=== PATIENT | female | born 1940 | race Caucasian/White ===

== ENCOUNTER 2024-09-19 14:02 | Inpatient (IN) | payer MEDICARE, BC ==
[~2024-09-19] VITALS: Ht 165.1 cm; Wt 45.8 kg
[2024-09-19] MEDS ORDERED: ZIPRASIDONE MESYLATE 20 MG VIAL IM ONE ×2 (14:15→14:20)
[2024-09-19] MEDS: ZIPRASIDONE MESYLATE 20 MG VIAL IM ONE (14:34)
[2024-09-19] MEDS ORDERED: QUET25TA PO (14:37)
[2024-09-19] MEDS ORDERED: DOCU100T28 PO (14:37)
[2024-09-19] MEDS ORDERED: ASPI81TA31 PO (14:37)
[2024-09-19] MEDS ORDERED: MAGN400O6 PO (14:37)
[2024-09-19] MEDS ORDERED: TAMS-3 PO (14:37)
[2024-09-19] MEDS ORDERED: DIVA500T2 PO (14:37)
[2024-09-19] MEDS ORDERED: MELA5TAB PO (14:37)
[2024-09-19] MEDS ORDERED: VITA-287 PO (14:37)
[2024-09-19] MEDS ORDERED: ACET-3117 PO (14:37)
[2024-09-19 15:02] LABS: BASOPHILS % (AUTO) 0.5 % (0.0-2.0); EOSINOPHILS % (AUTO) 0.5 % (0.0-7.0); HEMATOCRIT 37.7 % (31.2-41.9); HEMOGLOBIN 13.7 g/dL (10.9-14.3); LYMPHOCYTES # (AUTO) 2.2 K/uL (0.8-4.8); LYMPHOCYTES % (AUTO) 36.8 % (20.5-51.5); MEAN CORPUSCULAR HEMOGLOBIN 37.6 uug (24.7-32.8); MEAN CORPUSCULAR HGB CONC 36 g/dL (32.3-35.6); MEAN CORPUSCULAR VOLUME 103.8 fL (75.5-95.3); MONOCYTES # (AUTO) 0.4 K/uL (0.1-1.30); MONOCYTES % (AUTO) 6.9 % (0.0-11.0); NEUTROPHILS # (AUTO) 3.3 K/uL (1.8-8.9); NEUTROPHILS % (AUTO) 55.3 % (38.5-71.5); PLATELET COUNT (AUTO) 155 K/uL (179-408); RED BLOOD CELL COUNT(AUTO) 3.64 MIL/uL (3.63-4.92); RED CELL DISTRIBUTION WIDTH 12.6 % (12.3-17.7); WHITE BLOOD COUNT (AUTO) 5.9 K/uL (3.8-11.8)
[2024-09-19 15:08] LABS: DIFFERENTIAL COMMENT 1
[2024-09-19 15:11] LABS: CALCIUM 9.8 mg/dL (8.5-10.1); CARBON DIOXIDE 25 mmol/L (21-32); CHLORIDE 105 mmol/L (98-107); CREATININE 0.8 mg/dL (0.6-1.3); GLUCOSE 108 mg/dL (74-106); POTASSIUM 4.3 mmol/L (3.5-5.1); SODIUM SERUM 141 mmol/L (136-145); UREA NITROGEN, BLOOD 25 mg/dL (7-18)
[2024-09-19 15:15] LABS: AMMONIA < 10 umol/L (11-32); ETHANOL < 3 MG/DL (0-10)
[2024-09-19 15:17] LABS: ACETAMINOPHEN < 2.0 ug/mL (10-30); ALANINE AMINOTRANSFERASE 21 U/L (14-59); ALBUMIN 3.8 g/dL (3.4-5.0); ALKALINE PHOSPHATASE 59 U/L (50-136); ASPARTATE AMINOTRANSFERASE 23 U/L (15-37); BILIRUBIN,DIRECT 0.1 mg/dL (0.0-0.2); BILIRUBIN,TOTAL 0.4 mg/dL (0.2-1.0); TOTAL PROTEIN, SERUM 7.3 g/dL (6.4-8.2)
[2024-09-19 15:25] LABS: THYROID STIMULATING HORMONE 2.645 mIU/mL (0.358-3.740)
[2024-09-19] MEDS ORDERED: MAG HYDROX/AL HYDROX/SIMETH 30 ML LIQUID UDC PO PRN (17:45)
[2024-09-19] MEDS ORDERED: ACETAMINOPHEN 325 MG TABLET PO PRN (17:45)
[2024-09-19] MEDS ORDERED: ZOLPIDEM 5 MG TABLET PO PRN ×2 (17:45)
[2024-09-19] MEDS ORDERED: MAGNESIUM HYDROXIDE 30 ML LIQUID UDC PO PRN (17:45)
[2024-09-19] MEDS ORDERED: OLAN5TAB70 PO (18:06)
[2024-09-19 18:45] VITALS: BP 154/67; TEMP 98.4; O2SAT 100
[2024-09-19 20:00] VITALS: BP 140/72; TEMP 98.1; O2SAT 97
[2024-09-19] MEDS: LORAZEPAM 1 MG TABLET PO PRN (22:06)
[2024-09-20 08:45] LABS: ALANINE AMINOTRANSFERASE 23 U/L (14-59); ALKALINE PHOSPHATASE 69 U/L (50-136); ASPARTATE AMINOTRANSFERASE 18 U/L (15-37); BILIRUBIN,DIRECT 0.1 mg/dL (0.0-0.2); BILIRUBIN,TOTAL 0.4 mg/dL (0.2-1.0); CALCIUM 9.2 mg/dL (8.5-10.1); CARBON DIOXIDE 28 mmol/L (21-32); CHLORIDE 103 mmol/L (98-107); CREATININE 0.7 mg/dL (0.6-1.3); GLUCOSE 105 mg/dL (74-106); POTASSIUM 4.1 mmol/L (3.5-5.1); SODIUM SERUM 141 mmol/L (136-145); UREA NITROGEN, BLOOD 21 mg/dL (7-18)
[2024-09-20] MEDS: VITAMIN B COMPLEX 1 TABLET PO SCH (08:59)
[2024-09-20] MEDS: ASPIRIN 81 MG TAB.CHEW PO SCH (08:59)
[2024-09-20] MEDS: DOCUSATE SODIUM 100 MG CAPSULE PO SCH (08:59)
[2024-09-20] MEDS ORDERED: TAMSULOSIN HCL 0.4 MG CAP.SR.24H PO SCH (09:00)
[2024-09-20 09:18] VITALS: BP 162/87; TEMP 98; O2SAT 98
[2024-09-20] MEDS: ENSURE ENLIVE (VAN) 240 ML LIQUID PO SCH (11:15)
[2024-09-20 15:11] VITALS: BP 117/68; TEMP 98; O2SAT 98
[2024-09-20] MEDS: OLANZAPINE 2.5 MG TABLET PO SCH (18:20)
[2024-09-20] MEDS: LORAZEPAM 1 MG TABLET PO PRN (18:20)
[2024-09-20 20:00] VITALS: BP 141/79; TEMP 97.9; O2SAT 98
[2024-09-20] MEDS: TAMSULOSIN HCL 0.4 MG CAP.SR.24H PO SCH (21:13)
[2024-09-20] MEDS: DIVALPROEX SPRINKLE 125 MG CAP.SPRINK PO SCH (21:13)
[2024-09-20] MEDS: MIRTAZAPINE 15 MG TABLET PO SCH (21:13)
[2024-09-21 07:39] VITALS: BP 132/60; TEMP 97.5
[2024-09-21 16:10] VITALS: BP 116/68; TEMP 97.4; O2SAT 98
[2024-09-21 20:00] VITALS: BP 120/65; TEMP 97.3; O2SAT 98
[2024-09-22 20:00] VITALS: BP 139/88; TEMP 97.4; O2SAT 98
[2024-09-23 08:12] VITALS: BP 122/67; TEMP 98; O2SAT 98
[2024-09-23 17:04] VITALS: BP 121/76; TEMP 98.3; O2SAT 98
[2024-09-23 20:00] VITALS: BP 131/54; TEMP 97.4; O2SAT 96
[2024-09-24 08:10] VITALS: BP 145/73; TEMP 98; O2SAT 98
[2024-09-24 08:11] VITALS: BP 145/75; TEMP 97.8; O2SAT 98
[2024-09-24] MEDS: OLANZAPINE 2.5 MG TABLET PO SCH (08:14)
[2024-09-24 16:59] VITALS: BP 137/68; TEMP 98.3; O2SAT 98
[2024-09-24] MEDS: ATORVASTATIN 10 MG TABLET PO SCH (21:00)
[2024-09-25] MEDS: OLANZAPINE 5 MG TABLET PO SCH (08:08)
[2024-09-25 08:14] VITALS: BP 135/68; TEMP 98.6; O2SAT 93
[2024-09-25] MEDS: OLANZAPINE 10 MG VIAL IM ONE (08:22)
[2024-09-25] MEDS ORDERED: OLANZAPINE 2.5 MG TABLET PO SCH (09:00)
[2024-09-25 16:42] VITALS: BP 103/70; TEMP 98.6; O2SAT 97
[2024-09-25 22:05] VITALS: BP 98/68; TEMP 97.9; O2SAT 97
[2024-09-26 07:30] VITALS: BP 122/69; TEMP 97.9; O2SAT 94
[2024-09-26 16:30] VITALS: BP 116/62; TEMP 98.2; O2SAT 97
[2024-09-26 20:02] VITALS: BP 124/66; TEMP 97.9; O2SAT 95
[2024-09-27 07:49] VITALS: BP 120/60; TEMP 98; O2SAT 94
[2024-09-27 15:16] VITALS: BP 113/77; TEMP 98.2; O2SAT 98
[2024-09-27] MEDS: OLANZAPINE 10 MG VIAL IM PRN (16:56)
[2024-09-27 20:00] VITALS: BP 131/73; TEMP 97.5; O2SAT 96
[2024-09-28 07:58] VITALS: BP 159/73; TEMP 98.2; O2SAT 98
[2024-09-28 20:00] VITALS: BP_SYST 140; BP_SYST 81; BP_DIAS 47; BP_DIAS 89; TEMP 98; O2SAT 93; O2SAT 97
[2024-09-29 08:13] VITALS: BP 140/70; TEMP 98; O2SAT 98
[2024-09-29 15:23] VITALS: BP 120/68; TEMP 98.2; O2SAT 98
[2024-09-29 20:03] VITALS: BP 136/64; TEMP 98.1; O2SAT 96
[2024-09-30] MEDS ORDERED: HYDROCODONE/APAP 5-325MG TABLET PO PRN ×2 (13:45→14:00)
[2024-09-30] MEDS ORDERED: ACET325T53 PO (18:47)
[2024-09-30] MEDS ORDERED: ATOR10TA PO (18:48)
[2024-09-30] MEDS ORDERED: DOCU100C36 PO (18:49)
[2024-09-30] MEDS ORDERED: HYDR-4209 PO (18:50)
[2024-09-30] MEDS ORDERED: LACT-246 PO (18:51)
[2024-09-30] MEDS ORDERED: LORA-259 PO (18:52)
[2024-09-30] MEDS ORDERED: OLAN5TAB70 PO (18:54)
[2024-09-30] MEDS ORDERED: ZOLP5TAB2 PO (18:56)
[2024-09-30] MEDS ORDERED: MAG355OR18 PO (18:59)
[2024-09-30] MEDS ORDERED: OLAN10VI IM (19:00)
== END 2024-09-30 16:15 | disposition short-term general hospital (02) | DRG 885 ==
LOC: ER 14:02 → GPS 16:38
PROVIDERS: ADMIT Psychiatry & Neurology Psychiatry
DX: F39 Unspecified mood [affective] disorder (principal); S72.002A Fracture of unspecified part of neck of left femur, initial encounter for closed fracture; T71.122 Asphyxiation due to plastic bag, intentional self-harm; F01.54 Vascular dementia, unspecified severity, with anxiety; G93.40 Encephalopathy, unspecified; Z68.1 Body mass index [BMI] 19.9 or less, adult; R64 Cachexia; F01.53 Vascular dementia, unspecified severity, with mood disturbance; E46 Unspecified protein-calorie malnutrition; E44.0 Moderate protein-calorie malnutrition; F29 Unspecified psychosis not due to a substance or known physiological condition; Z79.82 Long term (current) use of aspirin; Z79.899 Other long term (current) drug therapy; F31.9 Bipolar disorder, unspecified; F20.9 Schizophrenia, unspecified; K21.9 Gastro-esophageal reflux disease without esophagitis; E78.5 Hyperlipidemia, unspecified; R62.7 Adult failure to thrive; D75.89 Other specified diseases of blood and blood-forming organs; I10 Essential (primary) hypertension; N32.81 Overactive bladder; W19.XXXA Unspecified fall, initial encounter; Y92.231 Patient bathroom in hospital as the place of occurrence of the external cause
CPT/HCPCS: 36415; 70450; 71045; 73501; 84443; 84484; 85025; 85730; A4606; A4663; G0480; J2358; J3486

== ENCOUNTER 2024-09-30 16:22 | Inpatient (IN) | payer MEDICARE, BC ==
[~2024-09-30] VITALS: Ht 165.1 cm; Wt 45.8 kg
[~2024-09-30 16:22] MED LIST: ACET-3117 PO; ASPI81TA31 PO; DOCU100T28 PO; MAGN400O6 PO; MELA5TAB PO; TAMS-3 PO; VITA-287 PO
[2024-09-30] MEDS ORDERED: ACET325T53 PO (18:47)
[2024-09-30] MEDS ORDERED: ATOR10TA PO (18:48)
[2024-09-30] MEDS ORDERED: DOCU100C36 PO (18:49)
[2024-09-30] MEDS ORDERED: HYDR-4209 PO (18:50)
[2024-09-30] MEDS ORDERED: LACT-246 PO (18:51)
[2024-09-30] MEDS ORDERED: LORA-259 PO (18:52)
[2024-09-30] MEDS ORDERED: OLAN5TAB70 PO (18:54)
[2024-09-30] MEDS ORDERED: ZOLP5TAB2 PO (18:56)
[2024-09-30] MEDS ORDERED: MAG355OR18 PO (18:59)
[2024-09-30] MEDS ORDERED: OLAN10VI IM (19:00)
[2024-09-30] MEDS ORDERED: MAGNESIUM HYDROXIDE 30 ML LIQUID UDC PO PRN (19:15)
[2024-09-30] MEDS ORDERED: LORAZEPAM 1 MG TABLET PO PRN (19:15)
[2024-09-30] MEDS ORDERED: ONDANSETRON 4 MG/2 ML VIAL IV PRN (19:15)
[2024-09-30] MEDS ORDERED: REMEDY ESSENTIAL ZINC PASTE 113 GM TP PRN (19:15)
[2024-09-30] MEDS: ATORVASTATIN 10 MG TABLET PO SCH (21:45)
[2024-09-30] MEDS: TAMSULOSIN HCL 0.4 MG CAP.SR.24H PO SCH (21:45)
[2024-09-30] MEDS: IV NS 1000 ML 1,000 ML IV ONE (22:15)
[2024-09-30] MEDS: MORPHINE SULFATE 2 MG/1 ML DISP.SYRIN IV PRN (23:27)
[2024-10-01] MEDS: PANTOPRAZOLE SODIUM 40 MG TABLET.DR PO SCH (07:00)
[2024-10-01 07:12] LABS: *BILIRUBIN,URIN NEGATIVE (NEGATIVE); *BLOOD, URINE NEGATIVE (NEGATIVE); *CLARITY,URINE CLEAR (CLEAR); *COLOR,URINE YELLOW (YELLOW); *KETONES,URINE NEGATIVE (NEGATIVE); *PROTEIN,URINE NEGATIVE (NEGATIVE); *UROBILINOGEN,URINE 0.2 E.U./dl (NORMAL); LEUKOCYTE ESTERASE ,URINE TRACE (NEGATIVE); NITRITE, URINE NEGATIVE (NEGATIVE); PH,URINE 6.5 (5.0-8.0); UGLUCOSE NEGATIVE (NEGATIVE)
[2024-10-01 07:24] LABS: CALCIUM 8.3 mg/dL (8.5-10.1); CARBON DIOXIDE 25 mmol/L (21-32); CHLORIDE 105 mmol/L (98-107); CHOLESTEROL 125 mg/dL (<200); CREATININE 0.6 mg/dL (0.6-1.3); GLUCOSE 95 mg/dL (74-106); HDL CHOLESTEROL 38 mg/dL (40-60); MAGNESIUM 2.1 mg/dL (1.8-2.4); PHOSPHOROUS 3.5 mg/dL (2.5-4.9); POTASSIUM 3.7 mmol/L (3.5-5.1); SODIUM SERUM 138 mmol/L (136-145); TRIGLYCERIDES 90 MG/DL (30-150); UREA NITROGEN, BLOOD 21 mg/dL (7-18)
[2024-10-01 07:36] LABS: THYROID STIMULATING HORMONE 1.726 mIU/mL (0.358-3.740)
[2024-10-01 07:37] LABS: BACTERIA,URINE FEW /HPF (NONE SEEN); SQUAMOUS EPITHELIAL CELL,UR FEW /HPF (NONE SEEN); WBC,URINE 20-50 /HPF (0-3)
[2024-10-01 07:54] LABS: BASOPHILS % (AUTO) 0.4 % (0.0-2.0); DIFFERENTIAL COMMENT 0; EOSINOPHILS % (AUTO) 0.6 % (0.0-7.0); HEMATOCRIT 31.1 % (31.2-41.9); HEMOGLOBIN 12.2 g/dL (10.9-14.3); LYMPHOCYTES # (AUTO) 1.7 K/uL (0.8-4.8); LYMPHOCYTES % (AUTO) 21.9 % (20.5-51.5); MEAN CORPUSCULAR HGB CONC 39 g/dL (32.3-35.6); MEAN CORPUSCULAR VOLUME 109.7 fL (75.5-95.3); MONOCYTES % (AUTO) 12.9 % (0.0-11.0); NEUTROPHILS # (AUTO) 4.9 K/uL (1.8-8.9); NEUTROPHILS % (AUTO) 64.2 % (38.5-71.5); PLATELET COUNT (AUTO) 139 K/uL (179-408); RED CELL DISTRIBUTION WIDTH 12.5 % (12.3-17.7); WHITE BLOOD COUNT (AUTO) 7.7 K/uL (3.8-11.8)
[2024-10-01 07:58] LABS: RED BLOOD CELL COUNT(AUTO) 2.84 MIL/uL (3.63-4.92)
[2024-10-01 08:00] VITALS: BP 125/75; TEMP 97.8; O2SAT 95
[2024-10-01] MEDS: DOCUSATE SODIUM 100 MG CAPSULE PO SCH (08:48)
[2024-10-01] MEDS: ENSURE WITH FIBER 237 ML LIQUID (CHOCOLATE) PO SCH (08:48)
[2024-10-01] MEDS: VITAMIN B COMPLEX 1 TABLET PO SCH (08:48)
[2024-10-01] MEDS: OLANZAPINE 5 MG TABLET PO SCH (08:48)
[2024-10-01] MEDS: ENOXAPARIN SODIUM 40 MG/0.4 ML DISP.SYRIN SQ SCH (08:50)
[2024-10-01 16:00] VITALS: BP_SYST 134; BP_SYST 163; BP_DIAS 74; BP_DIAS 82; TEMP 98.1; O2SAT 96
[2024-10-01] MEDS: HYDROCODONE/APAP 5-325MG TABLET PO PRN (16:25)
[2024-10-01 19:19] VITALS: BP 112/68; TEMP 98.6; O2SAT 93
[2024-10-01] MEDS ORDERED: CEFTRIAXONE /D5W 50ML IVPB **ER PYXIS IV ONE (21:37)
[2024-10-01] MEDS: CEFTRIAXONE 1 G VIAL IM SCH (21:59)
[2024-10-02] MEDS: IV NS 1000 ML 1,000 ML IV PRN (05:01)
[2024-10-02 06:15] VITALS: BP 120/75; TEMP 98.3; O2SAT 95
[2024-10-02 08:00] VITALS: BP 136/72; TEMP 98.3; O2SAT 96
[2024-10-02] MEDS ORDERED: MIDAZOLAM HCL 2 MG/2 ML VIAL ONE (08:37)
[2024-10-02] MEDS ORDERED: VASOPRESSIN 20 UNIT/ML VIAL ONE (08:37)
[2024-10-02] MEDS ORDERED: FENTANYL CITRATE 100 MCG/2 ML AMPUL ONE (08:37)
[2024-10-02] MEDS ORDERED: VANCOMYCIN 1000 MG VIAL ONE (09:07)
[2024-10-02] MEDS ORDERED: OLANZAPINE 10 MG VIAL IM PRN (09:15)
[2024-10-02] MEDS ORDERED: ROPIVACAINE HCL/PF 0.5% ( 5 MG/ML ) , 20 ML VIAL ONE (09:32)
[2024-10-02] MEDS ORDERED: IV D5W-0.45% NS +20 KCL 1,000 ML IV ONE (10:33)
[2024-10-02 11:44] VITALS: BP 145/78; TEMP 97.7; O2SAT 99
[2024-10-02] MEDS: IV D5W-0.45% NS +20 KCL 1,000 ML IV PRN (12:07)
[2024-10-02 15:58] VITALS: BP 130/68; TEMP 97.6; O2SAT 100
[2024-10-02] MEDS: CEFTRIAXONE 1 G in IV DEXTROSE 5% 50 ML IV SCH (20:32)
[2024-10-02] MEDS ORDERED: CEFTRIAXONE 1 G VIAL IM SCH (21:00)
[2024-10-02] MEDS: MORPHINE SULFATE 2 MG/1 ML DISP.SYRIN IV PRN (21:05)
[2024-10-02 21:50] VITALS: BP 136/75; TEMP 97.5; O2SAT 93
[2024-10-03 04:36] VITALS: BP 146/67; TEMP 98.3; O2SAT 95
[2024-10-03 07:34] LABS: BASOPHILS % (AUTO) 0.2 % (0.0-2.0); EOSINOPHILS % (AUTO) 0.6 % (0.0-7.0); HEMATOCRIT 28.7 % (31.2-41.9); HEMOGLOBIN 11.5 g/dL (10.9-14.3); LYMPHOCYTES # (AUTO) 1.5 K/uL (0.8-4.8); LYMPHOCYTES % (AUTO) 20.8 % (20.5-51.5); MEAN CORPUSCULAR HEMOGLOBIN 43.8 uug (24.7-32.8); MEAN CORPUSCULAR HGB CONC 40 g/dL (32.3-35.6); MONOCYTES # (AUTO) 0.9 K/uL (0.1-1.30); MONOCYTES % (AUTO) 11.7 % (0.0-11.0); NEUTROPHILS # (AUTO) 4.9 K/uL (1.8-8.9); NEUTROPHILS % (AUTO) 66.7 % (38.5-71.5); PLATELET COUNT (AUTO) 133 K/uL (179-408); RED BLOOD CELL COUNT(AUTO) 2.63 MIL/uL (3.63-4.92); RED CELL DISTRIBUTION WIDTH 12.8 % (12.3-17.7); WHITE BLOOD COUNT (AUTO) 7.3 K/uL (3.8-11.8)
[2024-10-03 07:41] LABS: DIFFERENTIAL COMMENT 1
[2024-10-03 07:44] LABS: CALCIUM 8.6 mg/dL (8.5-10.1); CARBON DIOXIDE 28 mmol/L (21-32); CHLORIDE 104 mmol/L (98-107); CREATININE 0.6 mg/dL (0.6-1.3); GLUCOSE 118 mg/dL (74-106); POTASSIUM 4.1 mmol/L (3.5-5.1); SODIUM SERUM 138 mmol/L (136-145); UREA NITROGEN, BLOOD 9 mg/dL (7-18)
[2024-10-03] MEDS: ENOXAPARIN SODIUM 40 MG/0.4 ML DISP.SYRIN SQ SCH (08:26)
[2024-10-03] MEDS ORDERED: PROPOFOL 200 MG/20 ML BOTTLE ONE (09:00)
[2024-10-03 10:41] VITALS: BP 150/83; TEMP 98.2; O2SAT 94
[2024-10-03 15:30] VITALS: BP 104/69; TEMP 98.5; O2SAT 97
[2024-10-03 19:00] VITALS: BP 107/52; TEMP 99.4; O2SAT 94
[2024-10-03] MEDS: ACETAMINOPHEN 325 MG TABLET PO PRN (20:55)
[2024-10-03] MEDS: MEGESTROL ACETATE 400 MG/10 ML LIQUID UDC PO SCH (20:57)
[2024-10-04 04:00] VITALS: BP 113/60; TEMP 98; O2SAT 96
[2024-10-04 07:39] LABS: CALCIUM 7.9 mg/dL (8.5-10.1); CARBON DIOXIDE 27 mmol/L (21-32); CHLORIDE 103 mmol/L (98-107); CREATININE 0.6 mg/dL (0.6-1.3); GLUCOSE 109 mg/dL (74-106); POTASSIUM 3.9 mmol/L (3.5-5.1); SODIUM SERUM 136 mmol/L (136-145); UREA NITROGEN, BLOOD 15 mg/dL (7-18)
[2024-10-04 07:57] LABS: BASOPHILS % (AUTO) 0.2 % (0.0-2.0); EOSINOPHILS % (AUTO) 0.8 % (0.0-7.0); HEMOGLOBIN 10.6 g/dL (10.9-14.3); LYMPHOCYTES # (AUTO) 1.1 K/uL (0.8-4.8); LYMPHOCYTES % (AUTO) 19.6 % (20.5-51.5); MEAN CORPUSCULAR HEMOGLOBIN 59.2 uug (24.7-32.8); MEAN CORPUSCULAR HGB CONC 55 g/dL (32.3-35.6); MEAN CORPUSCULAR VOLUME 108.5 fL (75.5-95.3); MONOCYTES # (AUTO) 0.8 K/uL (0.1-1.30); MONOCYTES % (AUTO) 13.7 % (0.0-11.0); NEUTROPHILS # (AUTO) 3.8 K/uL (1.8-8.9); NEUTROPHILS % (AUTO) 65.7 % (38.5-71.5); PLATELET COUNT (AUTO) 131 K/uL (179-408); RED CELL DISTRIBUTION WIDTH 12.6 % (12.3-17.7); WHITE BLOOD COUNT (AUTO) 5.8 K/uL (3.8-11.8)
[2024-10-04 07:59] LABS: DIFFERENTIAL COMMENT 1; RED BLOOD CELL COUNT(AUTO) 1.79 MIL/uL (3.63-4.92)
[2024-10-04 08:00] LABS: HEMATOCRIT 19.4 % (31.2-41.9)
[2024-10-04] MEDS: HYDROCODONE/APAP 10-325 MG TABLET PO PRN (10:35)
[2024-10-04 11:02] VITALS: BP 122/61; TEMP 98.5; O2SAT 96
[2024-10-04 11:13] LABS: HEMATOCRIT 26.4 % (31.2-41.9); HEMOGLOBIN 10.2 g/dL (10.9-14.3)
[2024-10-04 12:11] LABS: BAND % (MANUAL) 4 % (0-10); LYMPHOCYTES % (MANUAL) 18 % (20-40); MONOCYTES % (MANUAL) 12 % (2-10); NEUTROPHILS % (MANUAL) 66 % (42-75); PLATELET ESTIMATE DECREASED
[2024-10-04 12:12] LABS: ANISOCYTOSIS 1+
[2024-10-04 16:11] VITALS: BP 119/60; TEMP 97.2; O2SAT 95
[2024-10-04 19:15] VITALS: BP 129/64; TEMP 100.1; O2SAT 95
[2024-10-05 05:26] VITALS: BP 118/63; TEMP 98; O2SAT 97
[2024-10-05 07:43] LABS: CALCIUM 8.6 mg/dL (8.5-10.1); CARBON DIOXIDE 26 mmol/L (21-32); CHLORIDE 105 mmol/L (98-107); CREATININE 0.6 mg/dL (0.6-1.3); GLUCOSE 99 mg/dL (74-106); POTASSIUM 3.2 mmol/L (3.5-5.1); SODIUM SERUM 133 mmol/L (136-145); UREA NITROGEN, BLOOD 14 mg/dL (7-18)
[2024-10-05 08:22] LABS: BASOPHILS % (AUTO) 0.4 % (0.0-2.0); DIFFERENTIAL COMMENT 0; EOSINOPHILS # (AUTO) 0.1 K/uL (0.0-0.7); EOSINOPHILS % (AUTO) 1.2 % (0.0-7.0); HEMATOCRIT 25.8 % (31.2-41.9); LYMPHOCYTES # (AUTO) 1.9 K/uL (0.8-4.8); LYMPHOCYTES % (AUTO) 22.6 % (20.5-51.5); MEAN CORPUSCULAR HEMOGLOBIN 40.6 uug (24.7-32.8); MEAN CORPUSCULAR HGB CONC 39 g/dL (32.3-35.6); MEAN CORPUSCULAR VOLUME 105.2 fL (75.5-95.3); MONOCYTES % (AUTO) 12.1 % (0.0-11.0); NEUTROPHILS # (AUTO) 5.5 K/uL (1.8-8.9); NEUTROPHILS % (AUTO) 63.7 % (38.5-71.5); PLATELET COUNT (AUTO) 150 K/uL (179-408); RED CELL DISTRIBUTION WIDTH 12.7 % (12.3-17.7); WHITE BLOOD COUNT (AUTO) 8.6 K/uL (3.8-11.8)
[2024-10-05 08:32] LABS: RED BLOOD CELL COUNT(AUTO) 2.46 MIL/uL (3.63-4.92)
[2024-10-05] MEDS: POTASSIUM CHLORIDE 20 MEQ TAB.PRT.SR PO ONE (09:46)
[2024-10-05 11:05] VITALS: BP 111/61; TEMP 99; O2SAT 99
[2024-10-05 11:57] LABS: *BILIRUBIN,URIN NEGATIVE (NEGATIVE); *CLARITY,URINE CLEAR (CLEAR); *COLOR,URINE YELLOW (YELLOW); *KETONES,URINE NEGATIVE (NEGATIVE); *PROTEIN,URINE 1+ (NEGATIVE); *UROBILINOGEN,URINE 0.2 E.U./dl (NORMAL); LEUKOCYTE ESTERASE ,URINE NEGATIVE (NEGATIVE); NITRITE, URINE NEGATIVE (NEGATIVE); UGLUCOSE NEGATIVE (NEGATIVE)
[2024-10-05 11:58] LABS: *BLOOD, URINE TRACE (NEGATIVE); WBC,URINE 0-3 /HPF (0-3)
[2024-10-05 11:59] LABS: BACTERIA,URINE FEW /HPF (NONE SEEN)
[2024-10-05] MEDS ORDERED: PANT40TA49 PO (14:31)
[2024-10-05] MEDS ORDERED: ATOR10TA PO (14:31)
[2024-10-05] MEDS ORDERED: ENOX40DI SQ (14:31)
[2024-10-05] MEDS ORDERED: MEGE400O4 PO (14:31)
[2024-10-05] MEDS ORDERED: MAGN400O6 PO (14:31)
[2024-10-05] MEDS ORDERED: TAMS-3 PO (14:31)
[2024-10-05] MEDS ORDERED: VITA-85A PO (14:31)
[2024-10-05] MEDS ORDERED: DOCU-141 PO (14:31)
[2024-10-05] MEDS ORDERED: Lactose-Free Food/Fiber PO (14:31)
[2024-10-05] MEDS ORDERED: HYDR-3980 PO (14:31)
[2024-10-05] MEDS: MIRALAX 17 GM POWD.PACK PO SCH (14:35)
[2024-10-05 16:06] VITALS: BP 104/61; TEMP 98; O2SAT 96
[2024-10-05] MEDS ORDERED: ACETAMINOPHEN 325 MG TABLET-SA PATIENTS-PAIN ONLY PO PRN (18:00)
[2024-10-05] MEDS ORDERED: ENOXAPARIN SODIUM 40 MG/0.4 ML DISP.SYRIN SQ SCH (18:00)
[2024-10-05] MEDS ORDERED: HYDROCODONE/APAP 10-325 MG TABLET PO PRN (18:00)
[2024-10-05] MEDS ORDERED: MAGNESIUM HYDROXIDE 30 ML LIQUID UDC PO PRN (18:00)
[2024-10-05] MEDS ORDERED: MEGESTROL ACETATE 400 MG/10 ML LIQUID UDC PO SCH (21:00)
[2024-10-05] MEDS ORDERED: TAMSULOSIN HCL 0.4 MG CAP.SR.24H PO SCH (21:00)
[2024-10-05] MEDS ORDERED: ATORVASTATIN 10 MG TABLET PO SCH (21:00)
[2024-10-06] MEDS ORDERED: PANTOPRAZOLE SODIUM 40 MG TABLET.DR PO SCH (07:00)
[2024-10-06] MEDS ORDERED: DOCUSATE SODIUM 100 MG CAPSULE PO SCH (09:00)
[2024-10-06] MEDS ORDERED: ASPIRIN 81 MG TAB.CHEW PO SCH (09:00)
[2024-10-06] MEDS ORDERED: VITAMIN B COMPLEX 1 TABLET PO SCH (09:00)
[2024-10-06] MEDS ORDERED: Medication Not On Formulary EA ([Lactose-Free Food/Fiber] 237 ML) PO SCH (09:00)
[2024-10-06] MEDS ORDERED: LACT-47 PO (13:41)
== END 2024-10-05 17:03 | DRG 521 ==
LOC: MEDSURG3 16:23
PROC: 05HC33Z Insertion of Infusion Device into Left Basilic Vein, Percutaneous Approach (ICD-10-PCS; 2024-10-01)
PROC: 0SRS0JA Replacement of Left Hip Joint, Femoral Surface with Synthetic Substitute, Uncemented, Open Approach (ICD-10-PCS; principal; 2024-10-02 09:00)
DX: S72.012A Unspecified intracapsular fracture of left femur, initial encounter for closed fracture (principal); G93.41 Metabolic encephalopathy; F01.54 Vascular dementia, unspecified severity, with anxiety; N39.0 Urinary tract infection, site not specified; F01.53 Vascular dementia, unspecified severity, with mood disturbance; W18.39XA Other fall on same level, initial encounter; Y92.238 Other place in hospital as the place of occurrence of the external cause; E78.5 Hyperlipidemia, unspecified; R79.89 Other specified abnormal findings of blood chemistry; Z79.82 Long term (current) use of aspirin; Z79.899 Other long term (current) drug therapy; K21.9 Gastro-esophageal reflux disease without esophagitis; Z91.51 Personal history of suicidal behavior
CPT/HCPCS: 36415; 71045; 73501; 83735; 84100; 84443; 85018; 85025; 87040; 87086; 93005; 93307; A4663; G0378; J0690; J0696; J1100; J1650; J2250; J2270; J2405; J2765; J2795; J3010; J3370; J3490; J7040; J8999

== ENCOUNTER 2024-10-03 13:37 | Inpatient (IN) | payer MEDICARE, BC ==
[~2024-10-03] VITALS: Ht 165.1 cm; Wt 57.2 kg
[~2024-10-03 13:37] MED LIST changes: -ACET-3117 PO; +ACET325T53 PO; +ATOR10TA PO; +DOCU100C36 PO; -DOCU100T28 PO; +HYDR-4209 PO; +LACT-246 PO; +LORA-259 PO; +MAG355OR18 PO; +OLAN10VI IM; +OLAN5TAB70 PO; +ZOLP5TAB2 PO
[2024-10-04 11:15] VITALS: BP 122/61; TEMP 98.5
[2024-10-04 11:35] VITALS: BP 122/61; TEMP 98.5
[2024-10-05] MEDS ORDERED: TAMS-3 PO (14:31)
[2024-10-05] MEDS ORDERED: VITA-85A PO (14:31)
[2024-10-05] MEDS ORDERED: DOCU-141 PO (14:31)
[2024-10-05] MEDS ORDERED: MEGE400O4 PO (14:31)
[2024-10-05] MEDS ORDERED: ATOR10TA PO (14:31)
[2024-10-05] MEDS ORDERED: MAGN400O6 PO (14:31)
[2024-10-05] MEDS ORDERED: Lactose-Free Food/Fiber PO (14:31)
[2024-10-05] MEDS ORDERED: HYDR-3980 PO (14:31)
[2024-10-05] MEDS ORDERED: ENOX40DI SQ (14:31)
[2024-10-05] MEDS ORDERED: PANT40TA49 PO (14:31)
[2024-10-05 18:45] VITALS: BP 117/55; TEMP 98.1; O2SAT 96
[2024-10-05] MEDS ORDERED: Medication Not On Formulary EA (Melatonin 1 TAB) PO PRN (19:45)
[2024-10-05] MEDS ORDERED: MAG HYDROX/AL HYDROX/SIMETH 30 ML LIQUID UDC PO PRN (19:45)
[2024-10-05] MEDS ORDERED: ACETAMINOPHEN 325 MG TABLET-SA PATIENTS-PAIN ONLY PO PRN (19:45)
[2024-10-05] MEDS ORDERED: LORAZEPAM 1 MG TABLET PO PRN (19:45)
[2024-10-05] MEDS: ATORVASTATIN 10 MG TABLET PO SCH (20:30)
[2024-10-05] MEDS: TAMSULOSIN HCL 0.4 MG CAP.SR.24H PO SCH (20:30)
[2024-10-05] MEDS: ENOXAPARIN SODIUM 40 MG/0.4 ML DISP.SYRIN SQ SCH (20:31)
[2024-10-05] MEDS: MEGESTROL ACETATE 400 MG/10 ML LIQUID UDC PO SCH (21:00)
[2024-10-06] MEDS: PANTOPRAZOLE SODIUM 40 MG TABLET.DR PO SCH (06:04)
[2024-10-06 06:06] VITALS: BP 121/72; TEMP 98.2; O2SAT 99
[2024-10-06] MEDS: VITAMIN B COMPLEX 1 TABLET PO SCH (08:07)
[2024-10-06 08:10] VITALS: BP 118/67; TEMP 98; O2SAT 95
[2024-10-06] MEDS ORDERED: LACT-47 PO (13:41)
[2024-10-06] MEDS: HYDROCODONE/APAP 10-325 MG TABLET PO PRN (13:45)
[2024-10-06] MEDS: ENSURE ENLIVE (VAN) 240 ML LIQUID PO SCH (15:23)
[2024-10-06 15:49] VITALS: BP 122/72; TEMP 99.5; O2SAT 98
[2024-10-06] MEDS: MELATONIN 3 MG TABLET PO SCH (20:34)
[2024-10-06 20:40] VITALS: BP 121/66; TEMP 98.8; O2SAT 95
[2024-10-07 06:08] VITALS: BP 120/64; TEMP 97.9; O2SAT 97
[2024-10-07 08:00] VITALS: BP 128/60; TEMP 97.2; O2SAT 97
[2024-10-07] MEDS: ASPIRIN 81 MG TAB.CHEW PO SCH (08:40)
[2024-10-07 16:00] VITALS: BP_SYST 106; BP_SYST 107; BP_DIAS 47; BP_DIAS 55; TEMP 97.2; TEMP 97.5; O2SAT 97
[2024-10-07 20:21] VITALS: BP 117/64; TEMP 98; O2SAT 95
[2024-10-08 06:03] VITALS: BP 118/63; TEMP 97.9; O2SAT 95
[2024-10-08 08:00] VITALS: BP 127/75; TEMP 98.1; O2SAT 97
[2024-10-08] MEDS ORDERED: OLANZAPINE ZYDIS 5 MG TAB.RAPDIS PO PRN (09:00)
[2024-10-08 16:02] VITALS: BP 122/70; TEMP 97.9; O2SAT 98
[2024-10-08 20:00] VITALS: BP 119/66; TEMP 97.8; O2SAT 96
[2024-10-09 05:00] VITALS: BP 137/77; TEMP 97.9; O2SAT 96
[2024-10-09 08:00] VITALS: BP 134/75; TEMP 98.2; O2SAT 98
[2024-10-09 15:51] VITALS: BP 138/82; TEMP 97.6; O2SAT 98
[2024-10-09 20:30] VITALS: BP 144/72; TEMP 98; O2SAT 96
[2024-10-10 07:05] VITALS: BP 119/68; TEMP 98; O2SAT 97
[2024-10-10 07:39] VITALS: BP 113/68; TEMP 97.2; O2SAT 97
[2024-10-10] MEDS: MAGNESIUM HYDROXIDE 30 ML LIQUID UDC PO PRN (11:25)
[2024-10-10 16:00] VITALS: BP 128/78; TEMP 97.3; O2SAT 98
[2024-10-10 19:46] VITALS: BP 123/64; TEMP 97.9; O2SAT 99
[2024-10-11 06:10] VITALS: BP 130/70; TEMP 97.8; O2SAT 97
[2024-10-11 07:52] VITALS: BP 125/65; TEMP 98.1; O2SAT 97
[2024-10-11 16:14] VITALS: BP 129/68; TEMP 97.7; O2SAT 98
[2024-10-11 20:00] VITALS: BP 133/62; TEMP 98.2; O2SAT 95
[2024-10-12 05:00] VITALS: BP 138/69; TEMP 97.9; O2SAT 96
[2024-10-12 07:36] VITALS: BP 131/71; TEMP 97; O2SAT 99
[2024-10-12] MEDS ORDERED: REMEDY ESSENTIAL ZINC PASTE 113 GM TOP PRN (13:30)
[2024-10-12 15:42] VITALS: BP 108/60; TEMP 97.4; O2SAT 98
[2024-10-12 19:32] VITALS: BP 113/68; TEMP 97.6; O2SAT 97
[2024-10-12] MEDS: REMEDY ESSENTIAL ZINC PASTE 113 GM TOP SCH (20:24)
[2024-10-13] MEDS: BISACODYL 10 MG SUPP.RECT RC PRN (03:13)
[2024-10-13 05:40] VITALS: BP 126/70; TEMP 97.8; O2SAT 96
[2024-10-13] MEDS ORDERED: BISACODYL 10 MG SUPP.RECT RC PRN (05:53)
[2024-10-13 07:27] VITALS: BP 112/65; TEMP 97.6; O2SAT 98
[2024-10-13] MEDS: DOCUSATE SODIUM 100 MG CAPSULE PO SCH (08:18)
[2024-10-13] MEDS ORDERED: SHARK LIVER OIL/PETROLAT OINT 60 GM TUBE RC SCH (14:03)
[2024-10-13] MEDS: PHENYLEPHRINE/SHARK LIVER/CCB 1 EACH SUPP.RECT RC SCH (14:43)
[2024-10-13 16:02] VITALS: BP 121/78; TEMP 97.6; O2SAT 97
[2024-10-13 20:10] VITALS: BP 110/62; TEMP 97.9; O2SAT 98
[2024-10-14 06:19] VITALS: BP 131/68; TEMP 98.1; O2SAT 97
[2024-10-14 08:00] VITALS: BP 134/74; TEMP 97.8; O2SAT 100
[2024-10-14 17:00] VITALS: BP 115/64; TEMP 97; O2SAT 97
[2024-10-14 19:46] VITALS: BP 103/60; TEMP 97.9; O2SAT 98
[2024-10-15 05:41] VITALS: BP 136/71; TEMP 98.1; O2SAT 97
[2024-10-15 17:39] VITALS: BP 111/57; TEMP 97.9; O2SAT 97
[2024-10-15 20:30] VITALS: BP 122/59; TEMP 97.8; O2SAT 100
[2024-10-16 06:28] VITALS: BP 127/69; TEMP 98; O2SAT 100
[2024-10-16 08:00] VITALS: BP 124/66; TEMP 97.9; O2SAT 98
[2024-10-16 16:00] VITALS: BP 104/62; TEMP 97.6; O2SAT 99
[2024-10-16 19:43] VITALS: BP 113/67; TEMP 97.6; O2SAT 99
[2024-10-17 06:55] VITALS: BP 136/65; TEMP 97.8; O2SAT 98
[2024-10-17 07:28] LABS: BASOPHILS % (AUTO) 0.5 % (0.0-2.0); EOSINOPHILS # (AUTO) 0.1 K/uL (0.0-0.7); EOSINOPHILS % (AUTO) 0.8 % (0.0-7.0); HEMATOCRIT 23.1 % (31.2-41.9); HEMOGLOBIN 10.4 g/dL (10.9-14.3); LYMPHOCYTES % (AUTO) 30.3 % (20.5-51.5); MEAN CORPUSCULAR HEMOGLOBIN 50.6 uug (24.7-32.8); MEAN CORPUSCULAR HGB CONC 45 g/dL (32.3-35.6); MEAN CORPUSCULAR VOLUME 112.1 fL (75.5-95.3); MONOCYTES # (AUTO) 0.7 K/uL (0.1-1.30); MONOCYTES % (AUTO) 7.4 % (0.0-11.0); PLATELET COUNT (AUTO) 486 K/uL (179-408); RED CELL DISTRIBUTION WIDTH 14.6 % (12.3-17.7); WHITE BLOOD COUNT (AUTO) 9.9 K/uL (3.8-11.8)
[2024-10-17 07:31] LABS: DIFFERENTIAL COMMENT 1; RED BLOOD CELL COUNT(AUTO) 2.06 MIL/uL (3.63-4.92)
[2024-10-17 08:00] VITALS: BP 113/61; TEMP 97.7; O2SAT 97
[2024-10-17 08:18] LABS: ALANINE AMINOTRANSFERASE 19 U/L (14-59); ALBUMIN 2.4 g/dL (3.4-5.0); ALKALINE PHOSPHATASE 84 U/L (50-136); ASPARTATE AMINOTRANSFERASE 8 U/L (15-37); BILIRUBIN,TOTAL 0.2 mg/dL (0.2-1.0); CALCIUM 8.4 mg/dL (8.5-10.1); CARBON DIOXIDE 24 mmol/L (21-32); CHLORIDE 106 mmol/L (98-107); CREATININE 0.6 mg/dL (0.6-1.3); GLUCOSE 96 mg/dL (74-106); MAGNESIUM 2.2 mg/dL (1.8-2.4); PHOSPHOROUS 3.2 mg/dL (2.5-4.9); POTASSIUM 4.1 mmol/L (3.5-5.1); SODIUM SERUM 136 mmol/L (136-145); UREA NITROGEN, BLOOD 32 mg/dL (7-18)
[2024-10-17 16:00] VITALS: BP 107/68; TEMP 98; O2SAT 98
[2024-10-17 19:29] VITALS: BP 106/69; TEMP 97.7; O2SAT 98
[2024-10-18 06:36] VITALS: BP 127/64; TEMP 97.2; O2SAT 98
[2024-10-18 07:43] VITALS: BP 114/61; TEMP 97.4; O2SAT 93
[2024-10-18 16:01] VITALS: BP 117/59; TEMP 97.9; O2SAT 97
[2024-10-19 06:14] VITALS: TEMP 98.2
[2024-10-19 08:00] VITALS: BP 137/68; TEMP 97.2; O2SAT 97
[2024-10-19] MEDS: ACETAMINOPHEN 325 MG TABLET PO PRN (08:10)
[2024-10-19 16:00] VITALS: BP 111/68; TEMP 97.2; O2SAT 97
[2024-10-19 19:47] VITALS: BP 98/53; TEMP 98
[2024-10-20 05:14] VITALS: BP 123/58; TEMP 98.4; O2SAT 97
[2024-10-20 20:00] VITALS: BP 122/60; TEMP 97.8; O2SAT 98
[2024-10-21 05:00] VITALS: BP 121/67; TEMP 98.4; O2SAT 99
[2024-10-21 08:00] VITALS: BP 124/76; TEMP 97.4; O2SAT 100
[2024-10-21 13:30] VITALS: BP 116/74; TEMP 97.7; O2SAT 99
== END 2024-10-21 14:25 | disposition home health service (06) | DRG 559 ==
PROVIDERS: ADMIT Physical Medicine & Rehabilitation Pain Medicine; ATTEND Physical Medicine & Rehabilitation Pain Medicine
DX: Z47.1 Aftercare following joint replacement surgery (principal); E43 Unspecified severe protein-calorie malnutrition; G93.41 Metabolic encephalopathy; F03.94 Unspecified dementia, unspecified severity, with anxiety; D68.59 Other primary thrombophilia; F01.53 Vascular dementia, unspecified severity, with mood disturbance; F01.54 Vascular dementia, unspecified severity, with anxiety; N39.0 Urinary tract infection, site not specified; Z96.642 Presence of left artificial hip joint; E78.5 Hyperlipidemia, unspecified; K21.9 Gastro-esophageal reflux disease without esophagitis; Z91.81 History of falling; D75.89 Other specified diseases of blood and blood-forming organs; K64.9 Unspecified hemorrhoids; B96.89 Other specified bacterial agents as the cause of diseases classified elsewhere; R62.7 Adult failure to thrive; W18.30XD Fall on same level, unspecified, subsequent encounter; Z91.51 Personal history of suicidal behavior; R26.89 Other abnormalities of gait and mobility
CPT/HCPCS: 36415; 73501; 83735; 84100; 85025; 97535-GO-CO; A4663; A9150; J1650; J8999